=== PATIENT | female | born 1970 | race Caucasian/White ===

== ENCOUNTER 2021-11-20 17:26 | Emergency (ER) | payer OTHER ==
[~2021-11-20] VITALS: Ht 167.6 cm; Wt 113.4 kg
[~2021-11-20 17:26] MED LIST: KETO10TA2 PO; ORPH100T PO
[2021-11-20] MEDS ORDERED: FLONASE ALLERG9.9 ML NASAL (20:29)
[2021-11-20] MEDS ORDERED: CLARITIN-D 241 EACH PO (20:29)
[2021-11-20] MEDS ORDERED: ZITHROMAX500 MG PO (20:29)
[2021-11-20] MEDS ORDERED: MEDROLPACK PO (20:29)
== END 2021-11-20 20:35 | disposition home or self-care (01) ==
LOC: ER 17:26
DX: U07.1 COVID-19 (principal); A49.3 Mycoplasma infection, unspecified site

== ENCOUNTER → 2024-07-18 | Emergency (ER) | payer OTHER ==
[~2024-07-18] VITALS: Ht 167.6 cm; Wt 72.6 kg
[~2024-07-18] MED LIST changes: +CLARITIN-D 241 EACH PO; +FLONASE ALLERG9.9 ML NASAL; +KETOROLAC TROMETHAMINE 60 MG VIAL IM ONE; +MEDROLPACK PO; +ORPHENADRINE CITRATE 30 MG/ML AMPUL IM ONE; +ZITHROMAX500 MG PO
== END | disposition home or self-care (01) ==
LOC: ER 09:01
DX: M54.50 Low back pain, unspecified (principal)